=== PATIENT | female | born 1950 | race Two or more races ===

== ENCOUNTER 2024-12-14 11:15 | Inpatient (IN) | payer OTHER ==
[~2024-12-14] VITALS: Ht 157.5 cm; Wt 77.1 kg
[2024-12-14 13:42] VITALS: BP 116/72
[2024-12-14] MEDS ORDERED: METFORMIN HCL500 M3 (13:44)
[2024-12-14] MEDS ORDERED: AMLODIPINE-OLM1 EACH (13:44)
[2024-12-14] MEDS ORDERED: ZESTRIL5 MG (13:45)
[2024-12-14] MEDS ORDERED: ELIQUIS5 MG (13:45)
[2024-12-14] MEDS ORDERED: SIMVASTATIN40 MG (13:45)
[2024-12-14] MEDS ORDERED: HYDRALAZINE HCL25 MG (13:45)
[2024-12-20] MEDS ORDERED: CEFTRIAXONE SODIUM 2,000 MG VIAL ONE (07:52)
[2024-12-20] MEDS ORDERED: METRONIDAZOLE/SODIUM CHLORIDE 500 MG/100 ML PIGGYBACK IV ONE ×2 (07:52→17:16)
[2024-12-20] MEDS ORDERED: LIDOCAINE HCL 1%/EPINEPHRINE 20ML VIAL IJ ONE (11:30)
[2024-12-20] MEDS ORDERED: BUPIVACAINE HCL 30 ML VIAL IJ ONE (11:30)
[2024-12-20] MEDS ORDERED: OxyCODONE HCL 5 MG TABLET (ROXICODONE) PO PRN (13:00)
[2024-12-20] MEDS ORDERED: SIMETHICONE 125 MG CAPSULE PO SCH (13:00)
[2024-12-20] MEDS ORDERED: MORPHINE SULFATE 4 MG/ML CARTRIDGE IV PRN (13:00)
[2024-12-20] MEDS ORDERED: ONDANSETRON HCL 2 MG/ML VIAL IV PRN (13:00)
[2024-12-20] MEDS ORDERED: DEXTROSE 50 % IN WATER 0.5 G/ML VIAL IV PRN (13:00)
[2024-12-20] MEDS ORDERED: HYOSCYAMINE SULFATE 0.125 MG TAB.SUBL SL SCH (13:00)
[2024-12-20] MEDS ORDERED: RINGERS SOLUTION,LACTATED 1,000 ML IV SCH (13:00)
[2024-12-20] MEDS ORDERED: ACETAMINOPHEN 500 MG GEL..CAP PO SCH (14:00)
[2024-12-20 14:37] LABS: BASO % 0.3 % (0.1-1.2); EOS # 0.08 (0.04-0.54); EOS % 0.7 % (0.7-7.0); LYMPH # 2.21 (1.18-3.74); LYMPH % 19.7 % (19.3-53.1); MEAN PLATELET VOLUME 10.30 fl (9.4-12.4); MONO # 0.66 (0.24-0.82); MONO % 5.9 % (4.7-12.5); NEUT # 8.19 (1.56-6.13); NEUT % 73.0 % (34.0-71.1); RED CELL DISTRIBUTION WIDTH 12.9 % (11.6-14.4)
[2024-12-20 15:19] LABS: BUN CREA RATIO 37.0 (7.0-25.0); CREATININE SERUM 0.51 mg/dL (0.55-1.02); GFR 118.54; GLUCOSE FASTING 175.0 mg/dL (65-100); OSMOLALITY SERUM 288.0 MOSM/KG (275-295)
[2024-12-20] MEDS ORDERED: GABAPENTIN 300 MG CAPSULE PO SCH (17:00)
[2024-12-20] MEDS ORDERED: METRONIDAZOLE/SODIUM CHLORIDE 500 MG/100 ML PIGGYBACK IV SCH (17:00)
[2024-12-20] MEDS ORDERED: SIMETHICONE 125 MG CAPSULE PO ONE (17:15)
[2024-12-20] MEDS ORDERED: HYOSCYAMINE SULFATE 0.125 MG TAB.SUBL ONE (17:16)
[2024-12-20] MEDS ORDERED: GABAPENTIN 300 MG CAPSULE PO ONE (17:16)
[2024-12-20 19:00] VITALS: BP 117/74; O2SAT 95
[2024-12-20] MEDS ORDERED: KETOROLAC TROMETHAMINE 30 MG VIAL IV ONE (19:00)
[2024-12-20] MEDS ORDERED: ENALAPRILAT DIHYDRATE 1.25 MG/ML VIAL IV PRN (19:45)
[2024-12-20] MEDS ORDERED: CELECOXIB 200 MG CAPSULE PO SCH (21:00)
[2024-12-20] MEDS ORDERED: FAMOTIDINE/PF 20 MG/2 ML VIAL IV PUSH SCH (21:00)
[2024-12-21 02:35] VITALS: BP 109/68; O2SAT 94
[2024-12-21 06:21] LABS: BASO % 0.3 % (0.1-1.2); EOS # 0.01 (0.04-0.54); EOS % 0.1 % (0.7-7.0); LYMPH # 1.00 (1.18-3.74); LYMPH % 10.8 % (19.3-53.1); MEAN PLATELET VOLUME 10.80 fl (9.4-12.4); MONO # 0.70 (0.24-0.82); MONO % 7.5 % (4.7-12.5); NEUT # 7.52 (1.56-6.13); NEUT % 80.9 % (34.0-71.1); RED CELL DISTRIBUTION WIDTH 12.9 % (11.6-14.4)
[2024-12-21 07:42] LABS: BUN CREA RATIO 31.0 (7.0-25.0); CREATININE SERUM 0.39 mg/dL (0.55-1.02); GFR 161.55; GLUCOSE FASTING 107.0 mg/dL (65-100); OSMOLALITY SERUM 283.0 MOSM/KG (275-295)
[2024-12-21 08:00] VITALS: BP 113/75; O2SAT 94
[2024-12-21] MEDS ORDERED: LISINOPRIL 5 MG TABLET PO SCH (09:00)
[2024-12-21] MEDS ORDERED: LACTOBACILLUS ACIDOPHILUS 1 CAP CAP PO SCH (09:00)
[2024-12-21] MEDS ORDERED: AMLODIPINE BESYLATE 5 MG TABLET PO SCH (09:00)
[2024-12-21 16:20] VITALS: BP 95/64; O2SAT 93
[2024-12-21] MEDS ORDERED: SIMVASTATIN 40 MG TABLET PO SCH (17:00)
[2024-12-21] MEDS ORDERED: ENOXAPARIN SODIUM 40 MG/0.4 ML SYRINGE SUBCUTANEO SCH (17:00)
[2024-12-21] MEDS ORDERED: VITAMIN B COMPLEX/LYSINE 15 ML BLIST.PACK PO SCH (17:00)
[2024-12-22 01:03] VITALS: BP 106/64; O2SAT 96
[2024-12-22 07:24] LABS: BUN CREA RATIO 39.0 (7.0-25.0); CREATININE SERUM 0.31 mg/dL (0.55-1.02); GFR 210.56; GLUCOSE FASTING 89.0 mg/dL (65-100); OSMOLALITY SERUM 282.0 MOSM/KG (275-295)
[2024-12-22 07:31] LABS: BASO % 0.3 % (0.1-1.2); EOS # 0.16 (0.04-0.54); EOS % 1.8 % (0.7-7.0); LYMPH # 1.36 (1.18-3.74); LYMPH % 15.1 % (19.3-53.1); MEAN PLATELET VOLUME 11.30 fl (9.4-12.4); MONO # 0.63 (0.24-0.82); MONO % 7.0 % (4.7-12.5); NEUT # 6.76 (1.56-6.13); NEUT % 75.2 % (34.0-71.1); RED CELL DISTRIBUTION WIDTH 12.9 % (11.6-14.4)
[2024-12-22 08:00] VITALS: BP 90/63; O2SAT 95
[2024-12-22] MEDS ORDERED: ENOXAPARIN SODIUM 40 MG/0.4 ML SYRINGE SUBCUTANEO SCH (09:00)
[2024-12-22 17:09] VITALS: BP 105/72; O2SAT 93
[2024-12-23 01:41] VITALS: BP 103/64; O2SAT 96
[2024-12-23 08:23] VITALS: BP 89/64; O2SAT 98
[2024-12-23 14:39] VITALS: BP 121/84
[2024-12-23 16:00] VITALS: BP 116/80; O2SAT 98
[2024-12-24 01:12] VITALS: BP 107/71; O2SAT 98
[2024-12-24 06:08] LABS: BASO % 0.6 % (0.1-1.2); EOS # 0.25 (0.04-0.54); EOS % 4.0 % (0.7-7.0); LYMPH # 1.58 (1.18-3.74); LYMPH % 25.0 % (19.3-53.1); MEAN PLATELET VOLUME 10.50 fl (9.4-12.4); MONO # 0.58 (0.24-0.82); MONO % 9.2 % (4.7-12.5); NEUT # 3.83 (1.56-6.13); NEUT % 60.6 % (34.0-71.1); RED CELL DISTRIBUTION WIDTH 13.1 % (11.6-14.4)
[2024-12-24 06:56] LABS: BUN CREA RATIO 27.0 (7.0-25.0); CREATININE SERUM 0.52 mg/dL (0.55-1.02); GFR 115.91; GLUCOSE FASTING 118.0 mg/dL (65-100); OSMOLALITY SERUM 292.0 MOSM/KG (275-295)
[2024-12-24 08:00] VITALS: BP 118/79; O2SAT 97
[2024-12-24 16:45] VITALS: BP 107/71; O2SAT 97
[2024-12-25 00:16] VITALS: BP 111/78; O2SAT 96
[2024-12-25] MEDS ORDERED: HYOSCYAMINE0.125 M1 SL (07:53)
[2024-12-25] MEDS ORDERED: PEPCID AC20 MG PO (07:54)
[2024-12-25] MEDS ORDERED: TRAM1TAB98 PO (07:54)
[2024-12-25 09:18] VITALS: BP 123/78; O2SAT 96
== END 2024-12-25 13:44 | disposition home or self-care (01) | DRG 331 ==
LOC: SURH 12-20 07:00 → O/R 12-20 07:00 → SURH 12-20 11:00
PROVIDERS: Surgery; ADMIT Surgery; ATTEND Surgery
PROC: 0DBP4ZZ Excision of Rectum, Percutaneous Endoscopic Approach (ICD-10-PCS; 2024-12-20)
PROC: 07BC4ZZ Excision of Pelvis Lymphatic, Percutaneous Endoscopic Approach (ICD-10-PCS; 2024-12-20)
PROC: 0DJD8ZZ Inspection of Lower Intestinal Tract, Via Natural or Artificial Opening Endoscopic (ICD-10-PCS; 2024-12-20)
PROC: 0DTN4ZZ Resection of Sigmoid Colon, Percutaneous Endoscopic Approach (ICD-10-PCS; principal; 2024-12-20 11:00)
DX: C18.7 Malignant neoplasm of sigmoid colon (principal); R59.0 Localized enlarged lymph nodes

== ENCOUNTER 2024-12-31 00:42 | Inpatient (IN) | payer OTHER ==
[~2024-12-31] VITALS: Ht 157.5 cm; Wt 68.0 kg
[~2024-12-31 00:42] MED LIST: AMLODIPINE-OLM1 EACH; ELIQUIS5 MG; HYDRALAZINE HCL25 MG; HYOSCYAMINE0.125 M1 SL; METFORMIN HCL500 M3; PEPCID AC20 MG PO; SIMVASTATIN40 MG; TRAM1TAB98 PO; ZESTRIL5 MG
--- NOTE | 2024-12-31 00:57 | NUR ---
PACIENTE FEMENINA ALERTA Y ORIENTADA X3, REFIERE DOLOR ABDOMINAL BUTCH Y WILFRID Y FALTA DE APETITO TAMBIEN VERBALIZA QUE FUE OPEREDA POR POR POLIPOS EN COLON.
[2024-12-31] MEDS ORDERED: ZOCOR40 MG (00:59)
[2024-12-31] MEDS ORDERED: NORVASC5 MG (01:00)
[2024-12-31] MEDS ORDERED: HYDRODIURIL12.5 MG (01:00)
[2024-12-31] MEDS ORDERED: LEVSIN0.125 MG (01:00)
[2024-12-31] MEDS ORDERED: TRAMADOL HCL E200 M1 (01:00)
[2024-12-31] MEDS ORDERED: PEPCID AC10 MG (01:01)
--- NOTE | 2024-12-31 03:38 | NUR ---
SE ORIENTA PTE SOBRE TX, REFIERE ENTENDER Y ACEPTAR. SE LE NORIS MUESTRAS DE LABORATORIO Y SE CANALIZA.
[2024-12-31 04:03] LABS: BASO % 0.4 % (0.1-1.2); EOS # 0.09 (0.04-0.54); EOS % 0.9 % (0.7-7.0); LYMPH # 1.41 (1.18-3.74); LYMPH % 13.8 % (19.3-53.1); MEAN PLATELET VOLUME 9.70 fl (9.4-12.4); MONO # 0.53 (0.24-0.82); MONO % 5.2 % (4.7-12.5); NEUT # 8.08 (1.56-6.13); NEUT % 79.3 % (34.0-71.1); RED CELL DISTRIBUTION WIDTH 13.3 % (11.6-14.4)
[2024-12-31 04:16] LABS: ALT/SGPT 46.0 U/L (12-78); AST/SGOT 19.0 U/L (15-37); BILIRUBIN TOTAL 1.82 mg/dL (0.3-1.2); BUN CREA RATIO 23.0 (7.0-25.0); CREATININE SERUM 0.66 mg/dL (0.55-1.02); GFR 88.03; GLOBULINA 4.9 G/DL (2.4-3.5); GLUCOSE FASTING 122.0 mg/dL (65-100); OSMOLALITY SERUM 283.0 MOSM/KG (275-295)
[2024-12-31] MEDS ORDERED: ONDANSETRON HCL 2 MG/ML VIAL IV ONE (05:45)
[2024-12-31] MEDS ORDERED: ONDANSETRON HCL 2 MG/ML VIAL ONE ×4 (05:48→12:51)
--- NOTE | 2024-12-31 06:01 | NUR ---
SE REALIZAN MUESTRAS DE LAB DAYNE ORDEN MEDICA Y BAJO MEDIDAS ASEPTICAS. SE REALIZA EKG.
[2024-12-31 06:21] LABS: URINE APPEARANCE Clear; URINE BILIRRUBIN Negative (NEGATIVE); URINE BLOOD Moderate; URINE COLOR Yellow; URINE GLUCOSE Negative (NEGATIVE); URINE LEUKOCYTE Negative; URINE NITRATE Negative; URINE PROTEIN 30 (NEGATIVE); URINE UROBILINOGEN 1.0 E.U./dl
[2024-12-31 06:29] LABS: URINE BACTERIA 93.5 uL (0.0-1933); URINE EPITHELIAL CELLS 96.1 uL (0.0-38.8); URINE RBC 44.4 uL (0.0-20.8); URINE WBC 4.3 uL (0.0-23.2)
[2024-12-31] MEDS ORDERED: KETOROLAC TROMETHAMINE 30 MG VIAL IV ONE (06:30)
[2024-12-31 06:31] LABS: URINE CAST 0.73 uL (0.0-1.40); URINE KETONE 80 (NEGATIVE)
[2024-12-31] MEDS ORDERED: KETOROLAC TROMETHAMINE 30 MG VIAL ONE (06:34)
[2024-12-31 07:18] LABS: INR 1.14
[2024-12-31] MEDS ORDERED: 0.9 % SODIUM CHLORIDE 1,000 ML IV SCH (08:15)
[2024-12-31] MEDS ORDERED: ONDANSETRON HCL 4 MG in 0.9 % SODIUM CHLORIDE 50 ML IV PRN (08:15)
[2024-12-31] MEDS ORDERED: MORPHINE SULFATE 4 MG/ML CARTRIDGE IV PRN (08:15)
[2024-12-31] MEDS ORDERED: ENOXAPARIN SODIUM 40 MG/0.4 ML SYRINGE SUBCUTANEO SCH (09:00)
[2024-12-31] MEDS ORDERED: FAMOTIDINE/PF 20 MG in 0.9 % SODIUM CHLORIDE 100 ML IV SCH (09:00)
[2024-12-31] MEDS ORDERED: levoFLOXacin IN DEXTROSE 5 % 150 ML IV SCH (09:00)
[2024-12-31] MEDS ORDERED: METRONIDAZOLE/SODIUM CHLORIDE 500 MG/100 ML PIGGYBACK IV ONE ×2 (09:01→17:36)
[2024-12-31] MEDS ORDERED: ENOXAPARIN SODIUM 40 MG/0.4 ML SYRINGE SUBCUTANEO ONE (09:01)
[2024-12-31] MEDS ORDERED: levoFLOXacin IN DEXTROSE 5 % 5 MG/ML PIGGYBAG IV ONE (09:01)
[2024-12-31] MEDS ORDERED: ENALAPRILAT DIHYDRATE 1.25 MG/ML VIAL IV PRN (15:45)
[2024-12-31] MEDS ORDERED: DEXTROSE 50 % IN WATER 0.5 G/ML DISP.SYRIN IV PRN (15:45)
[2024-12-31] MEDS ORDERED: INSULIN LISPRO 1,000 UNIT/10 ML UNITS SUBCUTANEO PRN (15:45)
[2024-12-31 17:19] VITALS: BP 106/82; O2SAT 97
[2024-12-31 17:50] VITALS: BP 115/68; O2SAT 99
[2025-01-01 01:29] VITALS: BP 102/52; O2SAT 97
[2025-01-01] MEDS ORDERED: ENOXAPARIN SODIUM 60 MG/0.6 ML SYRINGE SUBCUTANEO SCH (09:00)
[2025-01-01 09:24] VITALS: BP 113/65; O2SAT 98
[2025-01-01 09:59] LABS: BASO % 0.5 % (0.1-1.2); EOS # 0.13 (0.04-0.54); EOS % 1.4 % (0.7-7.0); LYMPH # 1.50 (1.18-3.74); LYMPH % 15.8 % (19.3-53.1); MEAN PLATELET VOLUME 10.70 fl (9.4-12.4); MONO # 0.52 (0.24-0.82); MONO % 5.5 % (4.7-12.5); NEUT # 7.27 (1.56-6.13); NEUT % 76.4 % (34.0-71.1); RED CELL DISTRIBUTION WIDTH 13.5 % (11.6-14.4)
[2025-01-01 10:47] LABS: ALT/SGPT 29.0 U/L (12-78); AST/SGOT 14.0 U/L (15-37); BILIRUBIN TOTAL 1.63 mg/dL (0.3-1.2); BUN CREA RATIO 33.0 (7.0-25.0); CREATININE SERUM 0.51 mg/dL (0.55-1.02); GFR 118.54; GLOBULINA 3.6 G/DL (2.4-3.5); GLUCOSE FASTING 90.0 mg/dL (65-100); OSMOLALITY SERUM 282.0 MOSM/KG (275-295)
[2025-01-01 17:05] VITALS: BP 121/76; O2SAT 99
[2025-01-02 01:22] VITALS: BP 115/77; O2SAT 99
[2025-01-02 08:49] LABS: ALT/SGPT 21.0 U/L (12-78); AST/SGOT 16.0 U/L (15-37); BILIRUBIN TOTAL 1.4 mg/dL (0.3-1.2); BUN CREA RATIO 33.0 (7.0-25.0); CREATININE SERUM 0.4 mg/dL (0.55-1.02); GFR 156.9; GLOBULINA 3.2 G/DL (2.4-3.5); GLUCOSE FASTING 89.0 mg/dL (65-100); OSMOLALITY SERUM 285.0 MOSM/KG (275-295)
[2025-01-02 08:59] VITALS: BP 103/69; O2SAT 97
[2025-01-02] MEDS ORDERED: POTASSIUM CHLORIDE IN WATER 100 ML IV ONE (12:45)
[2025-01-02 16:26] VITALS: BP 108/67; O2SAT 97
[2025-01-03 00:25] VITALS: BP 121/80; O2SAT 98
[2025-01-03 07:30] VITALS: BP 126/78; O2SAT 97
[2025-01-03] MEDS ORDERED: AMINO ACIDS 1 EACH TABLET PO SCH (17:00)
[2025-01-03 17:27] VITALS: BP 142/88; O2SAT 98
[2025-01-03 18:43] LABS: BUN CREA RATIO 17.0 (7.0-25.0); CREATININE SERUM 0.41 mg/dL (0.55-1.02); GFR 152.49; GLUCOSE FASTING 95.0 mg/dL (65-100); OSMOLALITY SERUM 279.0 MOSM/KG (275-295)
[2025-01-03 20:35] LABS: BASO % 0.6 % (0.1-1.2); EOS # 0.16 (0.04-0.54); EOS % 2.4 % (0.7-7.0); LYMPH # 1.47 (1.18-3.74); LYMPH % 22.5 % (19.3-53.1); MEAN PLATELET VOLUME 10.20 fl (9.4-12.4); MONO # 0.49 (0.24-0.82); MONO % 7.5 % (4.7-12.5); NEUT # 4.35 (1.56-6.13); NEUT % 66.5 % (34.0-71.1); RED CELL DISTRIBUTION WIDTH 13.3 % (11.6-14.4)
[2025-01-03] MEDS ORDERED: POTASSIUM PHOS,M-BASIC-D-BASIC 15 MM in 0.9 % SODIUM CHLORIDE 250 ML IV ONE (21:00)
[2025-01-04 00:37] VITALS: BP 115/74; O2SAT 98
[2025-01-04 06:21] LABS: BASO % 0.7 % (0.1-1.2); EOS # 0.15 (0.04-0.54); EOS % 2.8 % (0.7-7.0); LYMPH # 1.27 (1.18-3.74); LYMPH % 23.5 % (19.3-53.1); MEAN PLATELET VOLUME 10.30 fl (9.4-12.4); MONO # 0.42 (0.24-0.82); MONO % 7.8 % (4.7-12.5); NEUT # 3.50 (1.56-6.13); NEUT % 64.6 % (34.0-71.1); RED CELL DISTRIBUTION WIDTH 13.3 % (11.6-14.4)
[2025-01-04 07:09] LABS: ALT/SGPT 32.0 U/L (12-78); AST/SGOT 39.0 U/L (15-37); BILIRUBIN TOTAL 1.05 mg/dL (0.3-1.2); BUN CREA RATIO 13.0 (7.0-25.0); CREATININE SERUM 0.53 mg/dL (0.55-1.02); GFR 113.39; GLOBULINA 3.0 G/DL (2.4-3.5); GLUCOSE FASTING 107.0 mg/dL (65-100); OSMOLALITY SERUM 285.0 MOSM/KG (275-295)
[2025-01-04] MEDS ORDERED: PEPCID AC20 MG PO (07:31)
[2025-01-04] MEDS ORDERED: ZOFRAN8 MG PO (07:31)
[2025-01-04] MEDS ORDERED: LEVOFLOXACIN500 MG PO (07:31)
[2025-01-04 08:21] VITALS: BP 109/68; O2SAT 98
[2025-01-04] MEDS ORDERED: NAPH,MB-DB/K PH,MBDB 1 PKT PACKET PO SCH (09:00)
== END 2025-01-04 12:50 | disposition home or self-care (01) | DRG 439 ==
LOC: ER → SURH 08:07 → SEC-K 08:07 → SURH 16:16
PROVIDERS: Internal Medicine; Internal Medicine Infectious Disease; Preventive Medicine Public Health & General Preventive Medicine; ADMIT Surgery; ATTEND Surgery
PROC: BW21YZZ Computerized Tomography (CT Scan) of Abdomen and Pelvis using Other Contrast (ICD-10-PCS; principal; 2024-12-31)
PROC: B246ZZZ Ultrasonography of Right and Left Heart (ICD-10-PCS; 2024-12-31)
PROC: 4A12X4Z Monitoring of Cardiac Electrical Activity, External Approach (ICD-10-PCS; 2024-12-31)
DX: K85.90 Acute pancreatitis without necrosis or infection, unspecified (principal); C18.7 Malignant neoplasm of sigmoid colon; K90.49 Malabsorption due to intolerance, not elsewhere classified; I48.20 Chronic atrial fibrillation, unspecified; K62.89 Other specified diseases of anus and rectum; E87.6 Hypokalemia; I10 Essential (primary) hypertension; E11.9 Type 2 diabetes mellitus without complications; E78.5 Hyperlipidemia, unspecified; Z79.01 Long term (current) use of anticoagulants; Z79.84 Long term (current) use of oral hypoglycemic drugs